=== PATIENT | male | born 1980 | race Hispanic/Latino ===

== ENCOUNTER 2023-09-08 05:35 | Day surgery (SDC) | payer MEDICARE ==
[~2023-09-08] VITALS: Ht 157.5 cm; Wt 83.9 kg
[2023-09-08] VITALS (10 sets, daily range): BP systolic 58–132; BP diastolic 51–96; PULSE 56–74; RESP 15–18
[~2023-09-08 05:35] MED LIST: FLUO20CA30 PO; LEVE10006 PO; PHENYTOIN PO; RISPERDAL PO
[2023-09-08] MEDS ORDERED: PRAV20TA4 PO (06:21)
[2023-09-08] MEDS ORDERED: FLUO10CA21 PO (06:21)
[2023-09-08] MEDS ORDERED: RISP0.5T61 PO (06:21)
[2023-09-08] MEDS ORDERED: FLUO20CA30 PO (06:21)
[2023-09-08] MEDS: 0.9%NACL 1000ML 1,000 ML IV ONE (06:24)
[2023-09-08] MEDS ORDERED: PROPOFOL 10 MG/ML 20ML VIAL IV ONE ×2 (07:37→08:00)
[2023-09-08] MEDS ORDERED: LIDOCAINE HCL 1% 20 ML VIAL ONE (07:38)
== END 2023-09-08 09:05 | disposition home or self-care (01) ==
LOC: ENDO 05:35 → DAH 05:35 → ENDO 09:05
PROVIDERS: ATTEND Internal Medicine Gastroenterology
DX: Z12.11 Encounter for screening for malignant neoplasm of colon (principal); D12.0 Benign neoplasm of cecum; D12.3 Benign neoplasm of transverse colon; D12.4 Benign neoplasm of descending colon; D12.8 Benign neoplasm of rectum; R56.9 Unspecified convulsions; F17.210 Nicotine dependence, cigarettes, uncomplicated; Z79.899 Other long term (current) drug therapy
CPT/HCPCS: 45380; 45385; J7030 ×2; J2704 ×2; A4620; A4215; A4223; A7002; A4222; A4221; A4663; A4606; J3490

== ENCOUNTER → 2024-06-12 | Outpatient (CLI) | payer MEDICARE ==
[~2024-06-12] MED LIST changes: +FLUO10CA21 PO; +LEVE100023 PO; -LEVE10006 PO; +PRAV20TA4 PO; +RISP0.5T61 PO; -RISPERDAL PO
== END | disposition home or self-care (01) ==
LOC: RAH 13:07
PROVIDERS: ATTEND Student in an Organized Health Care Education/Training Program
DX: I07.1 Rheumatic tricuspid insufficiency (principal); R06.09 Other forms of dyspnea
CPT/HCPCS: 93306